=== PATIENT | male | born 1950 | race Native Hawaiian/Other Pacific Islander ===

== ENCOUNTER 2018-08-11 10:33 | Outpatient (CLI) | payer OTHER | END 2018-08-11 20:38 | disposition home or self-care (01) | LOC: RAD 10:33 | DX: M25.562 Pain in left knee (principal) ==

== ENCOUNTER 2018-08-23 09:57 | Outpatient (CLI) | payer OTHER | END 2018-08-23 23:51 | disposition home or self-care (01) | LOC: NM 09:57 | DX: T84.033A Mechanical loosening of internal left knee prosthetic joint, initial encounter (principal) | CPT/HCPCS: A9561 ==

== ENCOUNTER 2018-08-31 09:58 | Outpatient (CLI) | payer OTHER ==
[2018-08-31 10:19] LABS: PLATELET COUNT 288 K/uL (142-355)
== END 2018-08-31 19:10 | disposition home or self-care (01) ==
LOC: LABW 09:58
PROVIDERS: Physician Assistant
DX: T84.033A Mechanical loosening of internal left knee prosthetic joint, initial encounter (principal)
CPT/HCPCS: 36415; 85027; 85651; 86140

== ENCOUNTER 2018-09-26 11:06 | Emergency (ER) | payer OTHER ==
[~2018-09-26] VITALS: Ht 180.3 cm; Wt 99.8 kg
[2018-09-26 11:08] VITALS: TEMP 98.4
[2018-09-26 12:04] LABS: PLATELET COUNT 296 K/uL (142-355)
[2018-09-26 12:10] LABS: POTASSIUM 3.6 mmol/L (3.6-5.2); SODIUM 139 mmol/L (136-145)
[2018-09-26 15:05] VITALS: BP 144/88
== END 2018-09-26 15:06 | disposition home or self-care (01) ==
LOC: ED 11:06
PROVIDERS: Emergency Medicine
DX: R07.89 Other chest pain (principal)
CPT/HCPCS: 36415; 80053; 81000; 82550; 84484; 85027; 93005; 99284

== ENCOUNTER 2019-05-26 11:42 | Outpatient (CLI) | payer OTHER | END 2019-05-26 19:52 | disposition home or self-care (01) | LOC: RAD 11:42 | DX: M25.562 Pain in left knee (principal) ==

== ENCOUNTER 2019-07-13 10:57 | Outpatient (CLI) | payer OTHER | END 2019-07-13 23:05 | disposition home or self-care (01) | LOC: RAD 10:57 | DX: M25.561 Pain in right knee (principal); R60.9 Edema, unspecified ==

== ENCOUNTER 2021-05-01 09:07 | Outpatient (CLI) | payer OTHER | END 2021-05-01 20:02 | disposition home or self-care (01) | LOC: US 09:07 | PROVIDERS: ATTEND Nurse Practitioner Family | DX: R22.32 Localized swelling, mass and lump, left upper limb (principal) ==

== ENCOUNTER 2022-03-04 12:05 | Outpatient (CLI) | payer OTHER | END 2022-03-04 18:52 | disposition home or self-care (01) | LOC: RAD 12:05 | PROVIDERS: ATTEND Nurse Practitioner Family | DX: M25.562 Pain in left knee (principal); I10 Essential (primary) hypertension ==